=== PATIENT | female | born 1995 | race Caucasian/White ===

== ENCOUNTER 2018-05-13 21:01 | Emergency (ER) | payer SELFPAY ==
[~2018-05-13] VITALS: Wt 55.6 kg
--- NOTE | 2018-05-13 21:26 | ERD ---
ER Documentation Chief Complaint Chief Complaint cough/chest wall pain w/ cough x4wks recovered start again today HPI 22-year-old female amatory to the ED complaining of fever, cough, sore throat and body aches. Patient had a similar symptoms several weeks ago, seemed to improve but recurred today. Sharp, generalized chest pain with coughing but no hemoptysis. No shortness of breath. Denies abdominal pain, nausea vomiting. No dysuria, polyuria, hematuria, vaginal discharge or bleeding. No headache, neck or back pain. ROS All systems reviewed and are negative except as per history of present illness. Medications Home Meds Reported Medications Guaifenesin/Dextromethorphan (Robitussin Fmwfd-Qjrwb-Ponh Dm) 1 Each Capsule, 1 EACH PO, CAP 05/13/18 Acetaminophen* (Acetaminophen*) 500 MG Extra Strength Tablet, 500 MG PO Q4H PRN for PAIN AND OR ELEVATED TEMP, TAB 05/13/18 Dextromethorphan Hb-Promethazine Hcl* (Promethazine DM* Syrup) 473 Ml Syrup, 5 ML PO Q6 PRN for COUGH, ML 05/13/18 Naproxen* (Naprosyn*) 500 Mg Tablet, 500 MG PO BID, TAB 05/13/18 Allergies Allergies: Coded Allergies: No Known Allergy (Unverified , 05/13/18) PMhx/Soc Reviewed in chart. As per HPI. History of Surgery: No Anesthesia Reaction: No Hx Neurological Disorder: No Hx Respiratory Disorders: No Hx Cardiac Disorders: No Hx Psychiatric Problems: No Hx Miscellaneous Medical Probl: No Hx Alcohol Use: No Hx Substance Use: No Hx Tobacco Use: No FmHx No heart disease or cancer Physical Exam Vitals Vital Signs Date Temp Pulse Resp B/P (MAP) Pulse Ox O2 O2 Flow FiO2 Time Delivery Rate 05/13/18 99.9 120 21 137/90 100 Room Air 22:30 (106) 05/13/18 99.7 22:00 05/13/18 102.0 130 22 134/73 96 21:11 (93) Physical Exam Const: No acute distress Head: Atraumatic Eyes: Normal Conjunctiva ENT: Normal External Ears, Nose and Mouth. Neck: Full range of motion. No meningismus. Resp: Clear to auscultation bilaterally Cardio: Regular rate and rhythm, no murmurs Abd: Soft, non tender, non distended. Normal bowel sounds Skin: No petechiae or rashes Back: No midline or flank tenderness Ext: No cyanosis, or edema Neur: Awake and alert Psych: Normal Mood and Affect Result Diagram: 05/13/18213605/13/182136 Results 24 hrs Laboratory Tests Test 05/13/18 21:37 05/13/18 21:38 05/13/18 21:42 White Blood Count 13.1 10^3/ul Red Blood Count 4.48 10^6/ul Hemoglobin 12.9 g/dl Hematocrit 38.3 % Mean Corpuscular Volume 85.5 fl Mean Corpuscular Hemoglobin 28.8 pg Mean Corpuscular 33.7 g/dl Hemoglobin Concent Red Cell Distribution Width 12.2 % Platelet Count 254 10^3/UL Mean Platelet Volume 9.3 fl Immature Granulocytes % 0.600 % Neutrophils % 75.2 % Lymphocytes % 10.9 % Monocytes % 12.8 % Eosinophils % 0.2 % Basophils % 0.3 % Nucleated Red Blood Cells % 0.0 /100WBC Immature Granulocytes # 0.080 10^3/ul Neutrophils # 9.9 10^3/ul Lymphocytes # 1.4 10^3/ul Monocytes # 1.7 10^3/ul Eosinophils # 0.0 10^3/ul Basophils # 0.0 10^3/ul Nucleated Red Blood Cells # 0.0 10^3/ul Urine Color YELLOW Urine Clarity CLEAR Urine pH 7.0 Urine Specific [place] 1.015 Urine Ketones 1+ mg/dL Urine Nitrite NEGATIVE mg/dL Urine Bilirubin NEGATIVE mg/dL Urine Urobilinogen NEGATIVE mg/dL Urine Leukocyte Esterase NEGATIVE Mariia/ul Urine Hemoglobin NEGATIVE mg/dL Urine Glucose NEGATIVE mg/dL Urine Total Protein NEGATIVE mg/dl Sodium Level 137 mmol/L Potassium Level 3.6 mmol/L Chloride Level 101 mmol/L Carbon Dioxide Level 25 mmol/L Anion Gap 11 Blood Urea Nitrogen 10 mg/dl Creatinine 0.46 mg/dl Est Glomerular Filtrat > 60 mL/min Rate mL/min Glucose Level 101 mg/dl Calcium Level 9.9 mg/dl Total Bilirubin 0.4 mg/dl Direct Bilirubin 0.00 mg/dl Indirect Bilirubin 0.4 mg/dl Aspartate Amino Transf (AST/SGOT) 24 IU/L Alanine 23 IU/L Aminotransferase (ALT/SGPT) Alkaline Phosphatase 67 IU/L Total Protein 8.0 g/dl Albumin 4.7 g/dl Globulin 3.30 g/dl Albumin/Globulin Ratio 1.42 Thyroid Stimulating Hormone (TSH) 1.310 MIU/L POC Venous Lactate 1.4 mmol/L POC Beta HCG, Qualitative NEGATIVE Current Medications Medications Dose Sig/Philippe Start Time Status Last (Trade) Ordered Route PRN Stop Time Admin Dose Reason Admin Sodium 1,670 ml BOLUS OVER 2 05/13/18 DC 05/13/18 Chloride HOURS STAT 21:37 21:58 (NS) IV* 05/13/18 21:39 650 mg ONCE STAT 05/13/18 DC 05/13/18 Acetaminophen PO 21:37 22:00 (Tylenol 05/13/18 21:39 Tab) Ceftriaxone 50 ml @ ONCE STAT 05/13/18 DC 05/13/18 Sodium 100 mls/hr IVPB 21:37 21:59 05/13/18 22:06 Azithromycin 250 ml @ ONCE STAT 05/13/18 DC 05/13/18 250 mls/hr IV 21:37 22:22 05/13/18 22:36 Procedures/MDM DOCUMENTS REVIEWED: ED nurse, [ ] IMAGING: Silhouette is normal. The costophrenic angles are clear. No effusions or infiltrates. [employer]ICAL DECISION MAKIN-year-old female with a history of hypertension presents the ED complaining of 1 day history of palpitations and sharp, nonradiating chest pain which started after he took Mucinex for chronic cough. Patient presented with fever, tachycardia and tachypnea consistent with systemic inflammatory response syndrome. CBC reveals mild leukocytosis but no anemia or thrombocytopenia. Chemistry is unremarkable for renal insufficiency or electrolyte abnormalities. Urinalysis is negative for infection. Chest x-ray is negative for pneumonia or pneumothorax. Abdominal exam is completely benign without tenderness, rebound, guarding, signs of peritonitis or an acute intra- abdominal process including but not limited to appendicitis, diverticulitis and cholecystitis hence imaging is not indicated. Patient improved with intravenous hydration and antipyretics. Possible influenza the patient is outside the window for antivirals. Patient with nonspecific syndrome suggestive of viral illness/upper respiratory tract infection. Stable for discharge with antipyretics, symptomatic care, precautionary instructions and outpatient follow-up as counseled. Counseled patient regarding diagnostic workup, diagnosis and need for followup. Understands to return to ED if symptoms recur, worsen or any other concerns. Departure Diagnosis: Primary Impression: Fever Fever type: unspecified Qualified Codes: R50.9 - Fever, unspecified Additional Impressions: Nonspecific syndrome suggestive of viral illness Viral URI Condition: KWAKU Agosto MD May 13, 2018 21:26
[2018-05-13] MEDS ORDERED: SODIUM CHLORIDE 0.9% 1L BAG IV* STA (21:37)
[2018-05-13] MEDS ORDERED: CEFTRIAXONE 1 GM/50 ML (PMX) 50 ML IVPB STA (21:37)
[2018-05-13] MEDS ORDERED: AZITHROMYCIN 500MG/NS (PMX) 250 ML IV STA (21:37)
[2018-05-13] MEDS ORDERED: ACETAMINOPHEN 325 MG TAB PO STA (21:37)
[2018-05-13] MEDS ORDERED: NAPR-985 PO (22:16)
[2018-05-13] MEDS ORDERED: D-ME473S2 PO (22:16)
[2018-05-13] MEDS ORDERED: GUAI1CAP PO (22:16)
[2018-05-13] MEDS ORDERED: ACET-141 PO (22:16)
[2018-05-14] MEDS ORDERED: IBUP-1542 PO (00:40)
[2018-05-14 00:44] VITALS: BP 109/72; PULSE 100; RESP 24
== END 2018-05-14 00:55 | disposition home or self-care (01) ==
LOC: E/R 21:01
DX: J06.9 Acute upper respiratory infection, unspecified (principal); R07.9 Chest pain, unspecified
CPT/HCPCS: 36415; 71045; 80053; 81003; 81025; 83605; 84443; 85025; 87040; 87086; 93005; 96374; 96375; 99285; J0456; J0696; J7030